=== PATIENT | female | born 1945 | race Caucasian/White ===

== ENCOUNTER 2022-12-13 12:18 | Day surgery (SDC) | payer OTHER ==
[~2022-12-13] VITALS: Ht 162.6 cm; Wt 82.5 kg
[2022-12-13] VITALS (9 sets, daily range): BP systolic 103–146; BP diastolic 51–83; PULSE 66–99; RESP 16–18; TEMP 98.8; O2SAT 93–96
[2022-12-13] MEDS ORDERED: normal saline 1,000 ML IV SCH (12:45)
[2022-12-13] MEDS ORDERED: LORazepam 0.5 MG tablet PO PRN (12:45)
[2022-12-13] MEDS ORDERED: diphenhydrAMINE 25mg capsule PO PRN (12:45)
[2022-12-13 13:11] LABS: BASOPHILS # (AUTO) 0.1 X10'3 (0-0.2); BASOPHILS % (AUTO) 0.8 % (0-1); EOSINOPHILS % (AUTO) 0.2 % (0-6); HEMATOCRIT 49.1 % (35.0-45.0); HEMOGLOBIN 16.6 g/dl (12.0-16.0); LYMPHOCYTES # (AUTO) 3.3 X10'3 (1.1-4.8); LYMPHOCYTES % (AUTO) 32.7 % (21-51); MEAN CORPUSCULAR HEMOGLOBIN 34.9 PG (27.0-31.0); MEAN CORPUSCULAR HGB CONC 33.8 g/dL (33.0-36.5); MEAN CORPUSCULAR VOLUME 103.4 FL (78-98); MONOCYTES # (AUTO) 0.9 X10'3 (0-0.9); MONOCYTES % (AUTO) 8.7 % (2-12); NEUTROPHILS # (AUTO) 5.8 X10'3 (1.8-7.7); NEUTROPHILS % (AUTO) 57.6 % (42-75); PLATELET COUNT 168 X10'3 (140-440); RED BLOOD COUNT 4.75 X10'6 (4.20-5.60); RED CELL DISTRIBUTION WIDTH 13.8 % (11.5-14.5); WHITE BLOOD COUNT 10.1 X10'3 (4.5-11.0)
[2022-12-13] MEDS ORDERED: POTA10CA85 PO (13:13)
[2022-12-13] MEDS ORDERED: METF-1203 PO (13:14)
[2022-12-13] MEDS ORDERED: ALLO300T8 PO (13:14)
[2022-12-13] MEDS ORDERED: ROSU20TA73 PO (13:15)
[2022-12-13] MEDS ORDERED: METO-384 PO (13:15)
[2022-12-13] MEDS ORDERED: EZET10TA48 PO (13:15)
[2022-12-13 13:17] LABS: ALBUMIN 4.2 G/DL (3.4-5.0); ANION GAP 12 (8-16); BLOOD UREA NITROGEN 14 MG/DL (7-18); BUN/CREATININE RATIO 12.7 (10.0-20.0); CALCIUM 10.3 MG/DL (8.5-10.1); CHLORIDE 98 MMOL/L (99-107); GLUCOSE 134 MG/DL (70-104); POTASSIUM 3.3 MMOL/L (3.5-5.1); PROTHROMBIN TIME 10.7 SECONDS (9.0-12.0); SODIUM 136 MMOL/L (135-145); TOTAL CARBON DIOXIDE 26.4 MMOL/L (24-32); eCRCL 36 ML/MIN; eGFR 48 ML/MIN
[2022-12-13] MEDS ORDERED: LEVO100T9 PO (13:17)
[2022-12-13] MEDS ORDERED: LOSA100T58 PO (13:17)
[2022-12-13] MEDS ORDERED: OMEP20CA16 PO (13:17)
[2022-12-13] MEDS ORDERED: INDA2.5T5 PO (13:17)
[2022-12-13] MEDS ORDERED: SPIR25TA5 PO (13:18)
[2022-12-13] MEDS ORDERED: APIX5TAB3 PO (13:18)
[2022-12-13] MEDS ORDERED: iohexol 350MG/ML 100ml bottle IV ONE (14:24)
[2022-12-13] MEDS ORDERED: fentaNYL/PF 50MCG/1 ML 2ML syringe ONE (14:24)
[2022-12-13] MEDS ORDERED: midazolam 1 mg/ML 2ml injection ONE (14:24)
[2022-12-13] MEDS ORDERED: heparin 1,000unit/ml 10ml vial 0 ML ONE (14:24)
[2022-12-13] MEDS ORDERED: verapamil 2.5 mg/ml inj IV ONE (14:24)
[2022-12-13] MEDS ORDERED: LIDOcaine 1% (10mg/ml) 2ml vial ONE (14:24)
[2022-12-13] MEDS ORDERED: nitroGLYCERIN 500mcg/5mL D5W 5 ML IV ONE (14:26)
[2022-12-13] MEDS ORDERED: FLU VACC QS2023-24(6MOS UP)/PF 60 MCG/0.5 ML SYRINGE IM ONE (14:30)
[2022-12-13] MEDS ORDERED: LIDOcaine 1% (10mg/ml)w/preservative inj. 20ml MDV ONE (14:39)
[2022-12-13] MEDS ORDERED: iohexol 350 MG/ML 50ML vial IV ONE ×2 (14:56→15:03)
[2022-12-13 15:09] LABS: ISTAT HGB ART 13.9 g/dl (12.0-16.0); ISTAT Hct ART 41 %PCV (35-45); ISTAT O2 SATURATION ARTERIAL 96 % (95-98); ISTAT SOURCE ART
[2022-12-13 15:22] LABS: ISTAT HGB MIX 14.6 g/dl (12.0-16.0); ISTAT Hct MIX 43 %PCV (35-45); ISTAT O2 SATURATION MIX VENOUS 66 % (60-80); ISTAT SOURCE VEN
[2022-12-13] MEDS ORDERED: HYDROcodone/acetaminophen 10/325mg tab PO PRN (15:35)
[2022-12-13] MEDS ORDERED: HYDROcodone/acetaminophen 5mg/325mg tablet PO PRN (15:35)
== END 2022-12-13 17:30 | disposition home or self-care (01) ==
LOC: SSTAY O 12:18
PROVIDERS: ATTEND Student in an Organized Health Care Education/Training Program
DX: I35.0 Nonrheumatic aortic (valve) stenosis (principal); I25.810 Atherosclerosis of coronary artery bypass graft(s) without angina pectoris; I25.82 Chronic total occlusion of coronary artery; I11.0 Hypertensive heart disease with heart failure; I50.9 Heart failure, unspecified; E78.00 Pure hypercholesterolemia, unspecified; I48.91 Unspecified atrial fibrillation
CPT/HCPCS: 36415; 80048; 82803; 85014; 85025; 85610; 90686; 93005; 93457; 93567; 99152; 99153; J1644; J2250; J3010; J3490; J7030; Q0163; Q9967; A6258; C1725; C1751; C1760; C1769; C1894

== ENCOUNTER 2023-02-22 10:01 | Outpatient (CLI) | payer OTHER ==
[~2023-02-22 10:01] MED LIST: ALLO300T8 PO; APIX5TAB3 PO; EZET10TA48 PO; INDA2.5T5 PO; LEVO100T9 PO; LOSA100T58 PO; METF-1203 PO; METO-384 PO; OMEP20CA16 PO; ROSU20TA73 PO; SPIR25TA5 PO
[2023-02-22 10:44] LABS: BASOPHILS % (AUTO) 0.4 % (0-1); EOSINOPHILS # (AUTO) 0.1 X10'3 (0-0.9); EOSINOPHILS % (AUTO) 0.9 % (0-6); HEMATOCRIT 41.1 % (35.0-45.0); HEMOGLOBIN 13.9 g/dl (12.0-16.0); LYMPHOCYTES # (AUTO) 3.4 X10'3 (1.1-4.8); LYMPHOCYTES % (AUTO) 40.9 % (21-51); MEAN CORPUSCULAR HGB CONC 33.7 g/dL (33.0-36.5); MEAN CORPUSCULAR VOLUME 103.9 FL (78-98); MEAN PLATELET VOLUME 9.9 FL (7.4-10.4); MONOCYTES # (AUTO) 0.9 X10'3 (0-0.9); MONOCYTES % (AUTO) 11.1 % (2-12); NEUTROPHILS # (AUTO) 3.9 X10'3 (1.8-7.7); NEUTROPHILS % (AUTO) 46.7 % (42-75); PLATELET COUNT 174 X10'3 (140-440); RED BLOOD COUNT 3.96 X10'6 (4.20-5.60); RED CELL DISTRIBUTION WIDTH 14.3 % (11.5-14.5); WHITE BLOOD COUNT 8.4 X10'3 (4.5-11.0)
[2023-02-22 10:53] LABS: APTT 32 SECONDS (22-32); PROTHROMBIN TIME 11.1 SECONDS (9.0-12.0)
[2023-02-22 11:06] LABS: ALANINE AMINOTRANSFERASE 22 U/L (12-78); ALBUMIN 3.8 G/DL (3.4-5.0); ALKALINE PHOSPHATASE 112 IU/L (46-116); ANION GAP 11 (8-16); ASPARTATE AMINO TRANSFERASE 24 U/L (10-37); BILIRUBIN,TOTAL 0.9 MG/DL (0.1-1.0); BLOOD UREA NITROGEN 18 MG/DL (7-18); BUN/CREATININE RATIO 17.5 (10.0-20.0); CHLORIDE 105 MMOL/L (99-107); CREATININE 1.03 MG/DL (0.40-0.90); GLUCOSE 126 MG/DL (70-104); PRO BRAIN NATRIURETIC PEPTIDE 4166 PG/ML (0-450); SODIUM 139 MMOL/L (135-145); TOTAL CARBON DIOXIDE 22.7 MMOL/L (24-32); TOTAL PROTEIN 7.7 G/DL (6.4-8.2); eGFR 52 ML/MIN
[2023-02-22 11:07] LABS: POTASSIUM 4.3 MMOL/L (3.5-5.1)
[2023-02-22] MEDS ORDERED: IODIXANOL 320 MG/ML INFUS..BTL 100ML IV ONE (11:28)
== END 2023-02-22 23:59 | disposition home or self-care (01) ==
LOC: 64 CT 10:01
PROVIDERS: ATTEND Internal Medicine Cardiovascular Disease
DX: K80.20 Calculus of gallbladder without cholecystitis without obstruction (principal); K57.30 Diverticulosis of large intestine without perforation or abscess without bleeding; I35.0 Nonrheumatic aortic (valve) stenosis; R06.02 Shortness of breath; I65.29 Occlusion and stenosis of unspecified carotid artery; I51.7 Cardiomegaly; I70.0 Atherosclerosis of aorta; M85.88 Other specified disorders of bone density and structure, other site; M41.86 Other forms of scoliosis, lumbar region; M47.816 Spondylosis without myelopathy or radiculopathy, lumbar region
CPT/HCPCS: 36415; 71046; 71275; 74174; 75572; 80053; 83880; 85025; 85610; 85730; 94010; 94727; 94729; J3490; Q9967

== ENCOUNTER 2023-03-30 09:28 | Inpatient (IN) | payer OTHER ==
[2023-03-28 11:17] LABS: BILIRUBIN,URINE NEGATIVE (Neg); CLARITY,URINE SLIGHTLY CLOUDY (Clear); COLOR,URINE YELLOW (Yellow); GLUCOSE, URINE NEGATIVE (Neg); KETONES,URINE NEGATIVE (Neg); LEUKOCYTE ESTERASE ,URINE NEGATIVE (Neg); NITRITES, URINE NEGATIVE (Neg); OCCULT BLOOD,URINE TRACE-INTACT (Neg); PH,URINE 6.5 (4.8-8.0); PROTEIN,URINE 30 mg/dl (Neg)
[2023-03-28 11:22] LABS: BASOPHILS % (AUTO) 0.4 % (0-1); EOSINOPHILS # (AUTO) 0.1 X10'3 (0-0.9); EOSINOPHILS % (AUTO) 0.8 % (0-6); LYMPHOCYTES # (AUTO) 2.7 X10'3 (1.1-4.8); LYMPHOCYTES % (AUTO) 33.7 % (21-51); MEAN CORPUSCULAR HEMOGLOBIN 35.4 PG (27.0-31.0); MEAN CORPUSCULAR HGB CONC 33.7 g/dL (33.0-36.5); MEAN CORPUSCULAR VOLUME 105.1 FL (78-98); MEAN PLATELET VOLUME 10.2 FL (7.4-10.4); MONOCYTES # (AUTO) 0.8 X10'3 (0-0.9); MONOCYTES % (AUTO) 9.6 % (2-12); NEUTROPHILS # (AUTO) 4.5 X10'3 (1.8-7.7); NEUTROPHILS % (AUTO) 55.5 % (42-75); PRE OP HEMATOCRIT 41.6 % (35.0-45.0); PRE OP PLATELET COUNT 178 X10'3 (140-440); RED BLOOD COUNT 3.96 X10'6 (4.20-5.60); RED CELL DISTRIBUTION WIDTH 14.8 % (11.5-14.5)
[2023-03-28 11:55] LABS: ALBUMIN 3.9 G/DL (3.4-5.0); ALBUMIN/GLOBULIN RATIO 1.1 (1.1-1.5); ALKALINE PHOSPHATASE 116 IU/L (46-116); BLOOD UREA NITROGEN 30 MG/DL (7-18); BUN/CREATININE RATIO 25.4 (10.0-20.0); CALCIUM 9.8 MG/DL (8.5-10.1); CHLORIDE 106 MMOL/L (99-107); CREATININE 1.18 MG/DL (0.40-0.90); PRE OP ALT 18 U/L (30-65); PRE OP ANION GAP 12 (8-16); PRE OP AST 21 U/L (10-37); PRE OP BILIRUB, TOTAL 1.2 MG/DL (0.0-1.0); PRE OP GLUCOSE 117 MG/DL (70-104); PRE OP POTASSIUM 4.3 MMOL/L (3.4-5.1); PRE OP SODIUM 142 MMOL/L (135-145); PRO BRAIN NATRIURETIC PEPTIDE 5066 PG/ML (0-450); TOTAL CARBON DIOXIDE 24.2 MMOL/L (24-32); TOTAL PROTEIN 7.4 G/DL (6.4-8.2); eGFR 44 ML/MIN
[2023-03-28 11:56] LABS: THYROID STIMULATING HORMONE < 0.01 ulU/ml (0.34-4.50)
[2023-03-28 12:06] LABS: HEMOGLOBIN A1C 6.1 % (4.5-6.2)
[2023-03-28 12:17] LABS: UA COLLECTION TYPE CLN CATCH MIDSTREAM
[2023-03-28 12:18] LABS: SQUAMOUS EPITHELIAL CELL,UR MANY /LPF (FEW)
[2023-03-28 12:19] LABS: HYALINE CASTS 0-3 /LPF (NEGATIVE)
[2023-03-28 12:20] LABS: BACTERIA,URINE 3+ /HPF (Neg); MUCUS STRANDS FEW /LPF (Neg); TRANSITIONAL EPI CELLS,URINE FEW /HPF; WBC CLUMPS,URINE FEW /HPF (NEGATIVE)
[~2023-03-30] VITALS: Ht 162.6 cm; Wt 82.6 kg
[2023-03-30] VITALS (18 sets, daily range): BP systolic 93–141; BP diastolic 49–81; PULSE 51–73; RESP 12–20; TEMP 97.3; O2SAT 90–100
[2023-03-30] MEDS: cefazolin/dext.iso 2gm/100ml IVPB IV ONE (05:30)
[2023-03-30] MEDS: phenylephrine inj 50 MG in normal saline 250ml IV solN IV SCH (05:30)
[2023-03-30] MEDS: nitroPRUSSIDE (NIPRIDE) (200MCG/ML) 100ML Drip IV SCH (05:30)
[2023-03-30] MEDS: DOCUMENT DATE & TIME OF BETA-BLOCKER PO ONE (05:30)
[~2023-03-30 09:28] MED LIST changes: +ondansetron/PF 4mg/2ml inj IV PRN
[2023-03-30] MEDS: aspirin 325mg tablet PO ONE (10:15)
[2023-03-30] MEDS: famotidine 20mg tablet PO ONE (10:15)
[2023-03-30] MEDS: ringers solution, lacted 1,000 ML IV SCH ×2 (10:17→13:30)
[2023-03-30 11:49] LABS: BILIRUBIN,URINE NEGATIVE (Neg); CLARITY,URINE SLIGHTLY CLOUDY (Clear); COLOR,URINE YELLOW (Yellow); GLUCOSE, URINE NEGATIVE (Neg); KETONES,URINE NEGATIVE (Neg); LEUKOCYTE ESTERASE ,URINE TRACE (Neg); NITRITES, URINE POSITIVE (Neg); OCCULT BLOOD,URINE NEGATIVE (Neg); PROTEIN,URINE NEGATIVE (Neg); UROBILINOGEN,URINE 0.2 E.U/dL (0.2-1.0)
[2023-03-30 11:57] LABS: UA COLLECTION TYPE NON-SPECIFIED
[2023-03-30 11:59] LABS: SQUAMOUS EPITHELIAL CELL,UR FEW /LPF (FEW)
[2023-03-30 12:00] LABS: BACTERIA,URINE 3+ /HPF (Neg); RBC,URINE 0-2 /HPF (0-2); TRANSITIONAL EPI CELLS,URINE FEW /HPF
[2023-03-30 12:02] LABS: PRE OP INR 1.1 INR
[2023-03-30 12:04] LABS: PRE OP PROTIME 12.1 SECONDS (9.0-12.0)
[2023-03-30] MEDS ORDERED: HYDROmorphone/PF 0.2 MG/ML SYRINGE IV PRN (13:30)
[2023-03-30] MEDS ORDERED: ondansetron/PF 4mg/2ml inj IV PRN ×2 (13:30→15:40)
[2023-03-30] MEDS ORDERED: morphine 2 MG/ML inj. syringe IV PRN (13:30)
[2023-03-30] MEDS ORDERED: labetalol 20mg/4ml (5mg/ml) syringe IV PRN ×2 (13:30→15:40)
[2023-03-30] MEDS ORDERED: proCHLORperazine 10 MG/2 ml inj IV PRN ×2 (13:30→15:40)
[2023-03-30] MEDS ORDERED: meperidine/PF 25mg/ml syringe IV PRN (13:30)
[2023-03-30] MEDS: acetaminophen 1,000mg/100ml IV 100 ML IV ONE (13:30)
[2023-03-30] MEDS ORDERED: hydrALAZINE 20mg/ml inj. IV PRN ×2 (13:30→15:40)
[2023-03-30] MEDS ORDERED: iohexol 350MG/ML 100ml bottle IV ONE (13:39)
[2023-03-30] MEDS ORDERED: LIDOcaine 1% 30ml preserv. free vial ONE (13:39)
[2023-03-30] MEDS ORDERED: heparin 1,000 UNITS/NS 500ml 1,500 ML ONE (13:40)
[2023-03-30] MEDS ORDERED: protamine sulf. 10mg/ml inj. IV ONE (13:46)
[2023-03-30] MEDS ORDERED: heparin 1,000 units/ml 10ml inj ONE (13:46)
[2023-03-30] MEDS ORDERED: fentaNYL/PF 50MCG/1 ML 2ML syringe ONE (14:02)
[2023-03-30] MEDS ORDERED: midazolam 1 mg/ML 2ml injection ONE (14:03)
[2023-03-30] MEDS ORDERED: propofol inj 20 ML IV ONE ×3 (14:25→15:21)
[2023-03-30] MEDS ORDERED: ePHEDrine 50MG/ML INJ. ONE (14:25)
[2023-03-30] MEDS ORDERED: 0.9 % SODIUM CHLORIDE 10 ML VIAL ONE (14:27)
[2023-03-30] MEDS ORDERED: protamine sulfate 10mg/ml inj. ONE (15:18)
[2023-03-30] MEDS ORDERED: potassium Cl 20mEq/100mL bag 100 ML IV PRN (15:40)
[2023-03-30] MEDS ORDERED: potassium Cl 20 mEq SR tablet PO PRN (15:40)
[2023-03-30] MEDS ORDERED: pantoprazole 40mg Tablet.DR PO PRN (15:40)
[2023-03-30] MEDS ORDERED: glucagon, human recombinant 1mg kit SUBCUT PRN (15:40)
[2023-03-30] MEDS ORDERED: potassium CL 10mEq/100ml bag 100 ML IV PRN (15:40)
[2023-03-30] MEDS ORDERED: dextrose 50%-water 50ml dispensing syringe IV PRN ×2 (15:40)
[2023-03-30] MEDS: normal saline 1000ml 1,000 ML IV SCH (15:40)
[2023-03-30] MEDS ORDERED: insulin Lispro (HumaLOG) vial - multi-dose SQ SCH (15:40)
[2023-03-30] MEDS ORDERED: potassium Cl 40MEQ/270ML bag 250 ML IV PRN (15:40)
[2023-03-30] MEDS ORDERED: acetaminophen 325mg tablet PO PRN (15:40)
[2023-03-30] MEDS: MESSAGE TO PHARMACY PO ONE (15:40)
[2023-03-30] MEDS ORDERED: HYDROcodone/acetaminophen 5mg/325mg tablet PO PRN (15:40)
[2023-03-30] MEDS ORDERED: insulin regular, human U-100 3ml vial - multi-dose SQ SCH (15:40)
[2023-03-30] MEDS ORDERED: DEXTROSE 15 GM of carb/4 tabs (each vial/BOTTLE has 4 tablets) PO PRN ×2 (15:40)
[2023-03-30] MEDS ORDERED: potassium Cl 40MEQ/1/2NS 520ml 520 ML IV PRN (15:40)
[2023-03-30] MEDS ORDERED: ALPRAZolam 0.25mg tablet PO PRN (15:40)
[2023-03-30] MEDS: sod chloride 0.9% 10ml flush syringe IV SCH (16:00)
[2023-03-30] MEDS: vancomycin/NS 1 GM ADD-VANTAGE 250 ML IV SCH (20:00)
[2023-03-30] MEDS: ceFAZolin 1GM/D5W- ADD-VANTAGE 50 ML IV SCH (20:40)
[2023-03-30] MEDS: ROSUVASTATIN CALCIUM 5 MG TABLET PO SCH (21:00)
[2023-03-30] MEDS: insulin glargine (Lantus) pen - multi-dose SQ SCH (21:00)
[2023-03-30] MEDS: diphenhydrAMINE 25mg capsule PO PRN (22:59)
[2023-03-31 02:00] VITALS: BP 104/62; PULSE 59; O2SAT 92
[2023-03-31 06:00] VITALS: BP 110/46; PULSE 77; RESP 16; TEMP 97.6; O2SAT 98
[2023-03-31 06:43] LABS: BASOPHILS % (AUTO) 0.7 % (0-1); EOSINOPHILS # (AUTO) 0.1 X10'3 (0-0.9); EOSINOPHILS % (AUTO) 1.1 % (0-6); HEMATOCRIT 35.2 % (35.0-45.0); HEMOGLOBIN 11.8 g/dl (12.0-16.0); LYMPHOCYTES # (AUTO) 1.5 X10'3 (1.1-4.8); LYMPHOCYTES % (AUTO) 22.8 % (21-51); MEAN CORPUSCULAR HEMOGLOBIN 35.3 PG (27.0-31.0); MEAN CORPUSCULAR HGB CONC 33.5 g/dL (33.0-36.5); MEAN CORPUSCULAR VOLUME 105.2 FL (78-98); MEAN PLATELET VOLUME 10.1 FL (7.4-10.4); MONOCYTES # (AUTO) 0.8 X10'3 (0-0.9); MONOCYTES % (AUTO) 12.4 % (2-12); PLATELET COUNT 115 X10'3 (140-440); RED BLOOD COUNT 3.34 X10'6 (4.20-5.60); RED CELL DISTRIBUTION WIDTH 14.9 % (11.5-14.5); WHITE BLOOD COUNT 6.4 X10'3 (4.5-11.0)
[2023-03-31 07:04] LABS: ALANINE AMINOTRANSFERASE 15 U/L (12-78); ALBUMIN 3.1 G/DL (3.4-5.0); ALBUMIN/GLOBULIN RATIO 1.1 (1.1-1.5); ALKALINE PHOSPHATASE 69 IU/L (46-116); ANION GAP 9 (8-16); ASPARTATE AMINO TRANSFERASE 20 U/L (10-37); BILIRUBIN,TOTAL 1.2 MG/DL (0.1-1.0); BLOOD UREA NITROGEN 18 MG/DL (7-18); BUN/CREATININE RATIO 17.1 (10.0-20.0); CALCIUM 9.3 MG/DL (8.5-10.1); CHLORIDE 108 MMOL/L (99-107); CREATININE 1.05 MG/DL (0.40-0.90); GLUCOSE 102 MG/DL (70-104); POTASSIUM 3.8 MMOL/L (3.5-5.1); PRO BRAIN NATRIURETIC PEPTIDE 6736 PG/ML (0-450); SODIUM 143 MMOL/L (135-145); eCRCL 38 ML/MIN; eGFR 51 ML/MIN
[2023-03-31 07:17] LABS: MAGNESIUM 0.8 MG/DL (1.5-2.4)
[2023-03-31] MEDS: magnesium 4gm in 100ml NS 100 ML IV PRN (07:24)
[2023-03-31] MEDS: INDAPAMIDE 2.5 MG TAB PO SCH (08:00)
[2023-03-31] MEDS: metoprolol succinate 25mg (24-HOUR) SR. Tablet PO SCH (08:46)
[2023-03-31] MEDS: ezetimibe 10mg tablet PO SCH (08:47)
[2023-03-31] MEDS: levoTHYROXINE 100mcg tablet PO SCH (08:47)
[2023-03-31] MEDS: ciprofloxacin 250mg tablet PO SCH (08:47)
[2023-03-31] MEDS: pantoprazole 40mg Tablet.DR PO SCH (08:48)
[2023-03-31] MEDS: allopurinol 300 MG tablet PO SCH (08:48)
[2023-03-31] MEDS: docusate sod 100mg capsule PO PRN (08:49)
[2023-03-31] MEDS: spironolactone 25 MG tablet PO SCH (08:50)
[2023-03-31] MEDS: losartan 50mg tablet PO SCH (08:50)
[2023-03-31 11:00] VITALS: BP 112/85; PULSE 86; RESP 14; TEMP 98.1; O2SAT 96
[2023-03-31] MEDS: magnesium 2GM in 50ml NS 50 ML IV PRN (11:41)
[2023-03-31] MEDS ORDERED: allopurinol 100mg tablet PO SCH (15:02)
[2023-03-31] MEDS ORDERED: MAGN400C PO (15:30)
[2023-03-31] MEDS ORDERED: CIPR250T26 PO (16:02)
== END 2023-03-31 16:55 | disposition home or self-care (01) | DRG 266 ==
LOC: PAS IN 09:28 → PCU 3S 17:30
PROVIDERS: ADMIT Internal Medicine Cardiovascular Disease; ATTEND Internal Medicine Cardiovascular Disease
PROC: 027F3ZZ Dilation of Aortic Valve, Percutaneous Approach (ICD-10-PCS; 2023-03-30)
PROC: B41D1ZZ Fluoroscopy of Aorta and Bilateral Lower Extremity Arteries using Low Osmolar Contrast (ICD-10-PCS; 2023-03-30)
PROC: 03HY32Z Insertion of Monitoring Device into Upper Artery, Percutaneous Approach (ICD-10-PCS; 2023-03-30)
PROC: 5A1223Z Performance of Cardiac Pacing, Continuous (ICD-10-PCS; 2023-03-30)
PROC: 02RF38Z Replacement of Aortic Valve with Zooplastic Tissue, Percutaneous Approach (ICD-10-PCS; principal; 2023-03-30 13:46)
DX: I35.0 Nonrheumatic aortic (valve) stenosis (principal); Z00.6 Encounter for examination for normal comparison and control in clinical research program; I50.23 Acute on chronic systolic (congestive) heart failure; I48.91 Unspecified atrial fibrillation; I25.10 Atherosclerotic heart disease of native coronary artery without angina pectoris; I11.0 Hypertensive heart disease with heart failure; E11.9 Type 2 diabetes mellitus without complications; E78.5 Hyperlipidemia, unspecified; Z88.8 Allergy status to other drugs, medicaments and biological substances
CPT/HCPCS: 33361; 36415; 71045; 71046; 76937; 80053; 81001; 82948; 83036; 83735; 83880; 84443; 85025; 85347; 85610; 85730; 86885; 86900; 86901; 86920; 87077; 87081; 87088; 87186; 93005; 93308; A4618; A6258; A6449; C1756; C1760; C1769; C1894; G0378; J0690; J1644; J1815; J2250; J2370; J2704; J2720; J3010; J3370; J3475; J3490; J7030; J7040; J7050; J7120; Q0163; Q9967